=== PATIENT | male | born 1980 | race Caucasian/White ===

== ENCOUNTER 2016-07-29 11:48 | Emergency (ER) | payer OTHER, BC ==
--- NOTE | 2016-07-29 13:08 | EDM.PDOC ---
ED HPI GENERAL MEDICAL PROBLEM - General Chief Complaint: Upper Extremity Injury/Pain Stated Complaint: SMASHED THUMB Time Seen by Provider: 07/29/16 13:03 Source of Information: Reports: Patient History Limitations: Reports: No Limitations - History of Present Illness INITIAL COMMENTS - FREE TEXT/NARRATIVE: History of present illness: [35-year-old male comes in status post trauma to left thumb. Patient indicates that it was compressed dramatically between 2 pieces of equipment and out of swollen and painful and he believes it is broken and would like to have it x- rayed.] Review of systems: As per history of present illness and below otherwise all systems reviewed and negative. Past medical history: As per history of present illness and as reviewed below otherwise noncontributory. Surgical history: As per history of present illness and as reviewed below otherwise noncontributory. Social history: No reported history of drug or alcohol abuse. Family history: As per history of present illness and as reviewed below otherwise noncontributory. Physical exam: HEENT: Atraumatic, normocephalic, pupils reactive, negative for conjunctival pallor or scleral icterus, mucous membranes moist, throat clear, neck supple, nontender, trachea midline. Lungs: Clear to auscultation, breath sounds equal bilaterally, chest nontender. Heart: S1S2, regular, negative for clicks, rubs, or JVD. Abdomen: Soft, nondistended, nontender. Negative for masses or hepatosplenomegaly. Negative for costovertebral tenderness. Pelvis: Stable nontender. Genitourinary: Deferred. Rectal: Deferred. Extremities: Left thumb with edema but full range of motion and good CMST., negative for cords or calf pain. Neurovascular unremarkable. Neuro: Awake, alert, oriented. Cranial nerves II through XII unremarkable. Cerebellum unremarkable. Motor and sensory unremarkable throughout. Exam nonfocal. Diagnostics: [And x-ray] Therapeutics: [] Impression: [1st digit fracture] Plan: [splint] Definitive disposition and diagnosis as appropriate pending reevaluation and review of above. Left Thumb Pain Score (Numeric/FACES): 4 - Related Data Allergies Allergy/AdvReac Type Severity Reaction Status Date / Time No Known Allergies Allergy Verified 07/29/16 12:40 Home Meds: Home Meds . [No Known Home Meds] 12/14/13 [History] Past Medical History - Past Health History Medical/Surgical History: Denies Medical/Surgical History Social & Family History - Family History Family Medical History: Noncontributory - Tobacco Use Smoking Status *Q: Never Smoker Years of Tobacco use: 10 - Recreational Drug Use Recreational Drug Use: No Recreational Drug Type: Reports: Marijuana/Hashish Recreational Drug Use Frequency: Not Used In Over 6 Months Review of Systems - Review of Systems Review Of Systems: See Below (See history of present illness) Trauma Exam - Physical Exam Exam: See Below (See history of present illness) Course - Vital Signs Last Recorded V/S: Last Vital Signs Temp 36.4 C 07/29/16 11:53 Pulse 78 07/29/16 11:53 Resp 18 07/29/16 11:53 BP 115/80 07/29/16 11:53 Pulse Ox 96 07/29/16 11:53 Departure - Departure Time of Disposition: 13:24 Disposition: Home, Self-Care 01 Condition: good Clinical Impression: Fracture - Discharge Information Instructions: Finger Fracture, [id number] Referrals: PCP,None [Primary Care Provider] - Forms: ED Department Discharge Additional Instructions: The following information is given to patients seen in the emergency department who are being discharged to home. This information is to outline your options for follow-up care. We provide all patients seen in our emergency department with a follow-up referral. The need for follow-up, as well as the timing and circumstances, are variable depending upon the specifics of your emergency department visit. If you don't have a primary care physician on staff, we will provide you with a referral. We always advise you to contact your personal physician following an emergency department visit to inform them of the circumstance of the visit and for follow-up with them and/or the need for any referrals to a consulting specialist. The emergency department will also refer you to a specialist when appropriate. This referral assures that you have the opportunity for follow-up care with a specialist. All of these measure are taken in an effort to provide you with optimal care, which includes your follow-up. Under all circumstances we always encourage you to contact your private physician who remains a resource for coordinating your care. When calling for follow-up care, please make the office aware that this follow-up is from your recent emergency room visit. If for any reason you are refused follow-up, please contact the [facility] Emergency Department at and asked to speak to the emergency department charge nurse. Wear splint as directed Followup with primary care provider one to 2 day Return to ED as needed as discussed
--- NOTE | 2016-07-29 13:09 | CR ---
EXAMINATION: Left hand HISTORY: Pain COMPARISON: None TECHNIQUE: 2 views FINDINGS/IMPRESSION: There is possibly a fracture through the ulnar aspect of the proximal first pha lanx distally. Remaining osseous structures and joint spaces appear intact. Bone mineralization and radiocarpal alignment are normal.
[2016-07-29 13:50] VITALS: BP 114/70
== END 2016-07-29 13:47 | disposition home or self-care (01) ==
LOC: MW.ED 11:48
DX: S62.502A Fracture of unspecified phalanx of left thumb, initial encounter for closed fracture (principal); W23.1XXA Caught, crushed, jammed, or pinched between stationary objects, initial encounter
CPT/HCPCS: 73120-26-LT; 73120-LT; 99283

== ENCOUNTER 2020-02-27 16:56 | Emergency (ER) | payer BC, OTHER ==
--- NOTE | 2020-02-27 17:06 | EDM.PDOC ---
ED HPI GENERAL MEDICAL PROBLEM - General Chief Complaint: Laceration Stated Complaint: LACERATION ON RT WRIST Time Seen by Provider: 02/27/20 17:04 Source of Information: Reports: Patient History Limitations: Reports: No Limitations - History of Present Illness INITIAL COMMENTS - FREE TEXT/NARRATIVE: HISTORY AND PHYSICAL: History of present illness: Patient is a 39-year-old male who presents to the ED today with concern of right wrist laceration that occurred just prior to arrival to the ED. Patient states that he has snakes at home and he was cleaning and working on one of the tanks. Patient states that he was laying a heating pad down in a glass tank and he was pressing down on the heating pad trying to secure it. Patient states that he ended up breaking the glass aquarium and caught his wrist on one of the pieces of glass. Patient states that it was bleeding so he applied pressure right away with some napkins he had at home and came to the emergency room to be evaluated. Patient states he is unsure of his exact tetanus status but believes he is up-to-date and does not want to update this or further look into this today. Patient states he has been fully able to move the hand without pain or difficulty. Patient states he also has some superficial abrasions to his left hand. Denies any other symptoms or concerns. Patient denies fever, chills, chest pain, shortness of breath, or cough. Denies headache, neck stiff ness, change in vision, syncope, or near syncope. Denies nausea, vomiting, abdominal pain, diarrhea, constipation, or dysuria. Has not noted any blood in urine or stool. Patient has been eating and drinking appropriately. Review of systems: As per history of present illness and below otherwise all systems reviewed and negative. Past medical history: As per history of present illness and as reviewed below otherwise noncontributory. Surgical history: As per history of present illness and as reviewed below otherwise noncontrib utory. Social history: See social history for further information Family history: As per history of present illness and as reviewed below otherwise noncontributory. Physical exam: General: Patient is alert, oriented, and in no acute distress. Patient sitting comfortably on exam table. HEENT: Atraumatic, normocephalic, pupils equal and reactive bilaterally, negative for conjunctival pallor or scleral icterus, mucous membranes moist, TMs normal bilaterally, throat clear, neck supple, nontender, trachea midline. No drooling or trismus noted. No meningeal signs. No hot potato voice noted. Lungs: Clear to auscultation, breath sounds equal bilaterally, chest nontender. Heart: S1S2, regular rate and rhythm without overt murmur Abdomen: Soft, nondistended, nontender. Negative for masses or h epatosplenomegaly. Negative for costovertebral tenderness. Pelvis: Stable nontender. Genitourinary: Deferred. Rectal: Deferred. Skin: Intact, warm, dry. No lesions or rashes noted. Extremities: There is a triangular 3cm irregular/jagged subcutaneous laceration of the anterior right wrist. There is other superficial abrasions of the digits of the left hand that have barely broke the skin without bleeding. Patient has full range of motion of complete bilateral upper extremities without pain or difficulty. Radial pulses grossly intact with capillary refill less than 2 seconds. Otherwise, atraumatic, negative for cords or calf pain. Neurovascular unremarkable. Neuro: Awake, alert, oriented. Cranial nerves II through XII unremarkable. Cerebellum unremarkable. Motor and sensory unremarkable throughout. Exam nonfocal. Notes: I was able to numb up patient's area of laceration, and explore the wound, laceration does appear to be more of a puncture wound. I did explore for possible foreign body but did not see any on exam. I will place patient on antibiotics due to likely deeper puncture wound of the wrist. There does not appear to be any venous/arterial injury. Patient has full ROM of all digits, wrist, and RUE without deficit. Signs and symptoms that would prompt return to the ED thoroughly discussed with patient. Discussed importance for follow-up with a primary care provider. Voices understanding and is agreeable to plan of care. Denies any further questions or concerns at this time. Diagnostics: wrist XR, RT (patient declines XR of left hand superficial abrasions for r/o FB) Therapeutics: Sutures, Lidocaine Prescription: Keflex Impression: Right wrist laceration Puncture wound, right wrist Left hand superficial abrasions Plan: 1. Keep the area clean and dry. Continue to monitor for signs of infection as discussed. Sutures to be removed in 7-10 days if they do not dissolve on their own 2. Tylenol and/or ibuprofen as directed and as needed for pain management and discomfort. 3. Please follow-up with your primary care provider as discussed. Return to the ED as needed and as discussed. Definitive disposition and diagnosis as appropriate pending reevaluation and review of above. Right Wrist Pain Score (Numeric/FACES): 6 - Related Data Allergies Allergy/AdvReac Type Severity Reaction Status Date / Time No Known Allergies Allergy Verified 02/27/20 17:31 Home Meds: Home Meds . [No Known Home Meds] 12/14/13 [History] Past Medical History - Past Health History Medical/Surgical History: Denies Medical/Surgical History Social & Family History - Family History Family Medical History: No Pertinent Family History ED ROS GENERAL - Review of Systems Review Of Systems: Comprehensive ROS is negative, except as noted in HPI. ED EXAM, SKIN/RASH Exam: See Below (see dictation) ED SKIN PROCEDURES - Laceration/Wound Repair Right Anterior Wrist Appearance: Subcutaneous (also a deeper puncutre type wound), Irregular, Clean Distal NVT: Neuro & Vascular Intact, No Tendon Injury Local Anesthesia - Lidocaine (Xylocaine): 1% with EPI Local Anesthetic Volume: Other (8) Skin Prep: Chlorhexidine (Hibiciens), Providone-Iodine (Betadine), Saline Saline Irrigation (cc's): 250 Exploration/Debridement/Repair: Wound Explored, In a Bloodless Field, Explored to Base, No Foreign Material Found Closed with: Sutures Lac/Wound length In cm: 3 Suture Size: 4-0 # of Sutures: 5 Suture Type: Interrupted, Other (chromic gut) Drain Placement: No Sterile Dressing Applied: Nurse Tetanus Status Addressed: Other (patient unsure of status but declines updating today) Complications: No Course - Vital Signs Last Recorded V/S: Last Vital Signs Temp 98.6 F 02/27/20 19:21 Pulse 86 02/27/20 19:21 Resp 16 02/27/20 19:21 BP 121/85 02/27/20 19:21 Pulse Ox 97 02/27/20 19:21 - Orders/Labs/Meds Meds: Medications Discontinued Medications Generic Name Dose Route Start Last Admin Trade Name Freq PRN Reason Stop Dose Admin Lidocaine/Epinephrine 10 ml 02/27/20 17:38 02/27/20 17:46 Xylocaine 1% With Epinephrine 1:100,000 INJECT 02/27/20 17:39 Not Given ONETIME ONE Lidocaine/Epinephrine Confirm 02/27/20 17:40 02/27/20 17:46 Xylocaine 1% With Epinephrine 1:100,000 Administered 02/27/20 17:41 Not Given Dose 20 ml .ROUTE .STK-MED ONE Lidocaine/Epinephrine 20 ml 02/27/20 17:40 02/27/20 17:46 Xylocaine 1% With Epinephrine 1:100,000 INJECT 02/27/20 17:41 20 ml ONETIME ONE Administration Departure - Departure Time of Disposition: 19:20 Disposition: Home, Self-Care 01 Clinical Impression: Superficial abrasion Laceration of wrist Qualifiers: Encounter type: initial encounter Laterality: right Qualified Code(s): S61.511A - Laceration without foreign body of right wrist, initial encounter - Discharge Information Referrals: Malcom Ryan MD [Primary Care Provider] - Forms: ED Department Discharge Additional Instructions: The following information is given to patients seen in the emergency department who are being discharged to home. This information is to outline your options for follow-up care. We provide all patients seen in our emergency department with a follow-up referral. The need for follow-up, as well as the timing and circumstances, are variable depending upon the specifics of your emergency department visit. If you don't have a primary care physician on staff, we will provide you with a referral. We always advise you to contact your personal physician following an emergency department visit to inform them of the circumstance of the visit and for follow-up with them and/or the need for any referrals to a consulting specialist. The emergency department will also refer you to a specialist when appropriate. This referral assures that you have the opportunity for follow-up care with a specialist. All of these measure are taken in an effort to provide you with optimal care, which includes your follow-up. Under all circumstances we always encourage you to contact your private physician who remains a resource for coordinating your care. When calling for follow-up care, please make the office aware that this follow-up is from your recent emergency room visit. If for any reason you are refused follow-up, please contact the [facility] Emergency Department at and asked to speak to the emergency department charge nurse. [facility] Primary Care [address] [place] [id number] [facility] [address] [place] [id number] 1. Keep the area clean and dry. Continue to monitor for signs of infection as discussed. Sutures to be removed in 7-10 days if they do not dissolve on their own 2. Tylenol and/or ibuprofen as directed and as needed for pain management and discomfort. 3. Please follow-up with your primary care provider as discussed. Return to the ED as needed and as discussed. Sepsis Event Note (ED) - Focused Exam Vital Signs: Vital Signs Temp Pulse Resp BP Pulse Ox 02/27/20 19:21 98.6 F 86 16 121/85 97 02/27/20 17:32 96.7 F L 83 16 140/84 96
[2020-02-27] MEDS ORDERED: Lidocaine 1% with EPINEPHrine 1:100,000 10 ML MDV INJECT ONE (17:38)
[2020-02-27] MEDS ORDERED: Lidocaine 1% with EPINEPHrine 1:100,000 20 ML MDV INJECT ONE (17:40)
[2020-02-27] MEDS ORDERED: Lidocaine 1% with EPINEPHrine 1:100,000 20 ML MDV ONE (17:40)
--- NOTE | 2020-02-27 18:16 | CR ---
INDICATION: Laceration right wrist. Evaluate for foreign body. Glass on aquarium broke and cut patient`s wrist. TECHNIQUE: Three views right wrist. FINDINGS: Mild soft tissue swelling right wrist. Question of air in the soft tissues of the right wrist radial aspect may be the known laceration. No opaque foreign body in right wrist. Deformity of the right 5th metacarpal consistent with an old fracture. Right wrist otherwise unremarkable. Dictated by Emmanuel Fabian MD @ Feb 27 2020 6:13PM Signed by Dr. Emmanuel Fabian @ Feb 27 2020 6:14PM
[2020-02-27 19:23] VITALS: PULSE 86
[2020-02-27 19:27] VITALS: BP 121/85
== END 2020-02-27 19:46 | disposition home or self-care (01) ==
LOC: MW.ED 16:56
DX: S61.511A Laceration without foreign body of right wrist, initial encounter (principal); S60.512A Abrasion of left hand, initial encounter; W25.XXXA Contact with sharp glass, initial encounter; Y92.009 Unspecified place in unspecified non-institutional (private) residence as the place of occurrence of the external cause
CPT/HCPCS: 12002; 73110-26-RT; 73110-RT; 99283; 99283-25

== ENCOUNTER 2024-04-19 17:15 | Emergency (ER) | payer BC, OTHER ==
[2024-04-19 17:57] LABS: HEMATOCRIT 43.4 % (42.0-52.0); HEMOGLOBIN 14.7 g/dL (14.0-18.0); MEAN CORPUSCULAR HEMOGLOBIN 29.1 pg (28.0-32.0); MEAN CORPUSCULAR HGB CONC 33.9 g/dL (32.0-36.0); MEAN CORPUSCULAR VOLUME 85.9 fL (83.0-99.0); MEAN PLATELET VOLUME 11.1 fL (9.4-12.4); PLATELET COUNT,PLT 154 K/uL (150-400); RED BLOOD CELL COUNT 5.05 M/uL (4.52-5.90); WHITE BLOOD CELL COUNT,WBC 7.63 K/uL (3.9-11.3)
[2024-04-19 18:17] LABS: BASOPHILS ABSOLUTE MAN 0.08 K/uL (0.00-0.20); BASOPHILS PERCENT MAN 1 % (0-1); EOSINOPHILS ABSOLUTE MAN 0.08 K/uL (0.00-0.45); EOSINOPHILS PERCENT MAN 1 % (0-6); LYMPHOCYTES ABSOLUTE MAN 2.29 K/uL (1.00-4.80); LYMPHOCYTES PERCENT MAN 30 % (24-44); MONOCYTES ABSOLUTE MAN 0.38 K/uL (0.00-0.80); MONOCYTES PERCENT MAN 5 % (0-8); SEG NEUTROPHILS ABSOLUTE MAN 4.81 K/uL (1.80-7.70); SEG NEUTROPHILS PERCENT MAN 63 % (41-71)
[2024-04-19 18:20] LABS: A/G RATIO 1.2 (0.9-1.6); ALBUMIN 3.8 g/dL (3.4-5.0); BILIRUBIN TOTAL 0.3 mg/dL (0.2-1.0); CALCIUM 9.1 mg/dL (8.5-10.1); CARBON DIOXIDE,CO2 25.7 mmol/L (21.0-32.0); CREATININE 1.1 mg/dL (0.8-1.3); EST CRCL DRUG DOSING (CG) 85.38 mL/min; POTASSIUM,K 3.8 mmol/L (3.5-5.1)
[2024-04-19] MEDS: Iopamidol 755 MG/ML 500 ML Multipack Bottle IVPUSH STA (18:41)
[2024-04-19] MEDS: Sodium Chloride 0.9% 1,000 ML IV ONE (19:08)
[2024-04-19 19:16] LABS: BILIRUBIN,URINE NEGATIVE (NEGATIVE); COLOR,URINE YELLOW; GLUCOSE,URINE NEGATIVE (NEGATIVE); KETONES,URINE NEGATIVE (NEGATIVE); LEUKOCYTE ESTERASE,URINE NEGATIVE (NEGATIVE); NITRITE,URINE NEGATIVE (NEGATIVE); OCCULT BLOOD,URINE LARGE (NEGATIVE); PH,URINE 5.5 (5.0-8.0); PROTEIN,URINE NEGATIVE (NEGATIVE); UROBILINOGEN,URINE 0.2 EU/dL (<2.0)
[2024-04-19] MEDS: Ketorolac 30 MG/ML SDV IVPUSH ONE (19:16)
[2024-04-19 19:19] LABS: APPEARANCE,URINE HAZY
[2024-04-19 19:34] LABS: BACTERIA,URINE RARE (NEGATIVE); EPITHELIAL CELLS,URINE RARE (NONE-FEW); WBC,URINE 0-1 (0-5/HPF)
[2024-04-19 20:44] VITALS: BP 127/84; PULSE 77
== END 2024-04-19 20:43 | disposition home or self-care (01) ==
LOC: MW.ED 17:15
DX: N13.2 Hydronephrosis with renal and ureteral calculous obstruction (principal); Z75.8 Other problems related to medical facilities and other health care
CPT/HCPCS: 36415; 74177; 74177-26; 80053; 81001; 83735; 85025; 87428-QW; 96361; 96374; 99284-25; J1885; J7030; Q9967